=== PATIENT | female | born 1950 | race Caucasian/White ===

== ENCOUNTER 2016-12-04 05:05 | Day surgery (SDC) | payer MEDICARE, BC ==
[2016-12-03 15:20] LABS: HEMATOCRIT 45.1 % (36.0-48.0); HEMOGLOBIN 15.6 g/dL (12-16); MCH 32.2 pg (26.0-34.0); MCHC 34.6 g/dL (31.0-37.0); MCV 93.2 fL (80.0-100.0); MEAN PLATELET VOLUME 10.3 fL (7.4-10.4); RBC 4.84 10x6/uL (4.00-5.40)
[~2016-12-04 05:05] MED LIST: ASPIRIN EC81 M1 PO; CARAFATE1 G PO; CYCLOBENZAPRINE10 MG PO; GLUCOSAMINE HC500 MG PO; HORMONE PATCH TOPICAL; HYDROCODONE-APA1 TAB PO; NIASPAN500 MG PO; PEPCID20 MG PO; PROMETRIUM200 MG PO; SYNTHROID150 MCG PO; VITAMIN D5000 UNIT PO; ZYLOPRIM100 MG PO; tumeric PO
[2016-12-04 05:42] VITALS: BP 145/71; BMI 34.2
--- NOTE | 2016-12-04 14:27 | NUR ---
1015--IV DC'D, PT UP TO DRESS AT THIS TIME. BABAK IBARRA 1035--DISCHARGE INSTRUCTIONS GIVEN, PT VERBALIZES UNDERSTANDING. PT OFF UNIT VIA WC. STEPHEN QUINTANA RN
--- NOTE | 2016-12-11 12:32 | OP ---
PATIENT NAME: SONIA MENDOZA MEDICAL RECORD: [id number] :52 LOCATION:D.OPS ADMISSION DATE: SURGEON: ALVA CROCKETT DPM DATE OF OPERATION: 12/04/2016 PREOPERATIVE DIAGNOSES: 1. Hallux abductovalgus, right foot. 2. Instability, right first metatarsal cuneiform joint. POSTOPERATIVE DIAGNOSES: 1. Hallux abductovalgus, right foot. 2. Instability, right first metatarsal cuneiform joint. PROCEDURES: 1. Carlson bunionectomy, right foot. 2. First met cuneiform joint effusion, right foot. ANESTHESIA: General with local infiltrate utilizing lidocaine and Marcaine plain, approximately 17 cc total around the first ray of the right foot. HEMOSTASIS: Right thigh tourniquet at 350 mmHg. PREOPERATIVE DETAILS: The patient was taken to the OR and placed on the operating table in supine position. This was followed by induction of general anesthesia and infiltration of local anesthetic. The right extremity was then prepped and draped in the usual aseptic technique followed by exsanguination and inflation of tourniquet. PROCEDURE #1: Carlson bunionectomy, right foot: A 15 blade was used to create an incision from the dorsal aspect of the medial cuneiform distally to the base of proximal phalanx of the hallux. The incision was deepened down through subcutaneous tissue being sure to avoid all vital structures. Dissection was carried down to the first MPJ where an inverted L capsulotomy was performed. The medial capsular flap was reflected and the head of the first metatarsal was delivered. A sagittal saw was used to resect the medial eminence. Attention was then directed to the first interspace where a lateral release was performed. PROCEDURE #2: First met cuneiform joint fusion: The incision as described in #1 was deepened down to the periosteum. A periosteal incision was made overlying the medial cuneiform and the first metatarsal. The first met cuneiform joint was delivered. A sagittal saw was used to resect the joint. Temporary fixation was then used to stabilize it while a 5-hole plate with 1 hole crossing the joint as a compression screw was placed. C-arm was used to verify good placement of the hardware as well as alignment, excellent internal fixation was noted. The wound was flushed. A 2-0 Vicryl was used to close the deep tissue including repair of the first MPJ capsule followed by closure of the subcutaneous tissue with 4-0 Rapide. The skin was then reapproximated and closed with 4-0 Rapide in a subcuticular technique followed by Dermabond, Adaptic, 4 x 4 and Conform were used to dress the wound followed by application of a modified Isaacs compression dressing. Tourniquet was deflated. POSTOPERATIVE DETAILS: The patient tolerated the procedure well and left the OR with vital signs stable and vascular status at preoperative levels. The patient was transported to recovery per anesthesia in stable condition. OPERATIVE REPORT [id number] SONIA MENDOZA TRANSINT:[id number] Voice Confirmation ID: [id number] DOCUMENT ID: [id number] ALVA CROCKETT DPM at 1232 CC: [id number] DICTATION DATE: 12/04/16 0845 DIGITAL COORDINATOR: 12/04/16 1038 [facility] 12/04/16 [id number] [place] [address]
== END 2016-12-04 10:35 | disposition home or self-care (01) ==
LOC: D.OPS 05:05
PROVIDERS: Anesthesiology
DX: M20.11 Hallux valgus (acquired), right foot (principal); M25.374 Other instability, right foot; F17.200 Nicotine dependence, unspecified, uncomplicated; E03.9 Hypothyroidism, unspecified; K21.9 Gastro-esophageal reflux disease without esophagitis; E66.9 Obesity, unspecified; Z68.34 Body mass index [BMI] 34.0-34.9, adult; Z01.812 Encounter for preprocedural laboratory examination

== ENCOUNTER → 2017-10-16 09:53 | Outpatient (CLI) | payer MEDICARE, BC | END | disposition home or self-care (01) | LOC: D.US 09:53 | DX: I83.893 Varicose veins of bilateral lower extremities with other complications (principal) ==

== ENCOUNTER 2018-07-23 13:40 | Outpatient (CLI) | payer OTHER | END 2018-07-23 23:59 | LOC: D.MAMMO 13:40 | PROVIDERS: ATTEND Family Medicine | DX: Z12.31 Encounter for screening mammogram for malignant neoplasm of breast (principal) ==

== ENCOUNTER → 2018-12-28 12:45 | Outpatient (CLI) | payer OTHER | END | disposition home or self-care (01) | LOC: D.US 12:45 | PROVIDERS: ATTEND Family Medicine | DX: M25.561 Pain in right knee (principal) ==